=== PATIENT | female | born 1945 | race Caucasian/White ===

== ENCOUNTER → 2016-08-01 | Outpatient (CLI) | payer OTHER ==
--- NOTE | 2016-08-02 08:40 | MR ---
MRI upper extremity, right shoulder History: Right shoulder pain. Evaluate for rotator cuff tear. ICD-10 code S46.001A. Technique: MRI was performed of the right shoulder using a 3 Angi MRI system. Oblique coronal, obliq ue sagittal, and axial images were obtained with standard imaging sequences. Findings: General: No significant axillary lymphadenopathy. No evidence for fracture.. Acromial Clavicular Region: Moderate degenerative change is seen in the acromioclavicular joint. Ante rior curve to the acromion. Mild subacromial fluid collection. Rotator Cuff: Abnormal signal intensity and attenuation are seen in the distal supraspinatus tendon. There is full-thickness attenuation of the distal anterior insertion. A measurable full-thickness tea r is not visualized. There is abnormal signal intensity in the distal infraspinatus tendon with edema , but no attenuation. Teres minor is unremarkable. Mild abnormal signal intensity is seen in the dist al subscapularis tendon without attenuation. Biceps tendon: Long head biceps tendon is seen within the bicipital groove. Mild abnormal signal inte nsity is seen in the intra-articular long head biceps tendon. Glenohumeral Joint: No evidence for labral tear. No evidence for an articular cartilage defect of the glenohumeral joint. No evidence for glenohumeral joint effusion. Impression: 1. Moderate to severe tendinopathy and partial tear distal supraspinatus tendon, more significant at the distal anterior insertion. Mild tendinopathy or strain distal infraspinatus tendon. Subacromial b ursitis. 2. Mild tendinopathy intra-articular long head biceps tendon. 3. Mild tendinopathy distal subscapularis tendon. 4. Moderate degenerative change acromioclavicular joint. Anterior curve to the acromion.
== END ==
LOC: FIMAGING 16:11
PROVIDERS: ATTEND Internal Medicine
DX: M75.81 Other shoulder lesions, right shoulder (principal); M75.21 Bicipital tendinitis, right shoulder; M19.011 Primary osteoarthritis, right shoulder